=== PATIENT | male | born 2000 | race African-American/Black ===

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

== ENCOUNTER 2019-02-18 07:16 | Emergency (ER) | payer MEDICAID ==
[~2019-02-18] VITALS: Ht 177.8 cm; Wt 80.0 kg
[~2019-02-18 07:16] MED LIST changes: +KEPP500 PO
[2019-02-18] MEDS ORDERED: SODIUM CHLORIDE 0.9% 1,000 ML IV ONE ×2 (07:31→11:15)
[2019-02-18] MEDS ORDERED: LEVETIRACETAM 500MG PREMIX 100 ML IV ONE (07:45)
[2019-02-18 07:52] LABS: BASOPHILS % 0.7 % (0.0-2.0); EOSINOPHILS % 0.9 % (0.0-5.0); HEMATOCRIT. 41.6 % (42.0-52.0); HEMOGLOBIN. 14.2 g/dL (14.0-18.0); LYMPHOCYTES % 58.2 % (20.0-50.0); MEAN CORPUSCULAR HEMOGLOBIN 27.1 pg (28.0-32.0); MEAN CORPUSCULAR VOLUME 79.3 fL (80.0-94.0); MONOCYTES % 7.9 % (2.0-8.0); NEUTROPHILS % 32.3 % (40.0-76.0); PLATELET 199 x1000/uL (130-400); RED BLOOD CELL COUNT 5.25 mill/uL (4.7-6.1); RED CELL DISTRIBUTION WIDTH 14.3 % (11.6-14.6)
[2019-02-18 07:55] LABS: CHLORIDE 106 mEq/L (98-107)
[2019-02-18 12:45] VITALS: BP 111/68
== END 2019-02-18 12:59 | disposition home or self-care (01) ==
LOC: ER 07:16
DX: G40.909 Epilepsy, unspecified, not intractable, without status epilepticus (principal); I11.9 Hypertensive heart disease without heart failure
CPT/HCPCS: 36415; 80053; 85025; 96365; 96366; 99283; J1953; J7030

== ENCOUNTER 2019-02-22 03:55 | Emergency (ER) | payer MEDICAID ==
[~2019-02-22] VITALS: Ht 175.3 cm; Wt 75.0 kg
[2019-02-22 05:38] VITALS: BP 91/57
== END 2019-02-22 05:39 | disposition home or self-care (01) ==
LOC: ER 03:55
DX: R56.9 Unspecified convulsions (principal); I51.9 Heart disease, unspecified; Z79.899 Other long term (current) drug therapy
CPT/HCPCS: 82962; 99283

== ENCOUNTER 2019-04-12 22:46 | Emergency (ER) | payer MEDICAID ==
[~2019-04-12] VITALS: Ht 175.3 cm; Wt 77.0 kg
[2019-04-12] MEDS ORDERED: LORAZEPAM 2MG/ML CPJ IV ONE (23:30)
[2019-04-12] MEDS ORDERED: LEVETIRACETAM 500MG PREMIX 100 ML IV ONE (23:30)
[2019-04-12 23:55] LABS: CHLORIDE 108 mEq/L (98-107)
[2019-04-12 23:56] LABS: BASOPHILS % 0.3 % (0.0-2.0); EOSINOPHILS % 0.4 % (0.0-5.0); HEMATOCRIT. 36.3 % (42.0-52.0); HEMOGLOBIN. 12.8 g/dL (14.0-18.0); LYMPHOCYTES % 36.8 % (20.0-50.0); MEAN CORPUSCULAR HEMOGLOBIN 27.1 pg (28.0-32.0); MEAN CORPUSCULAR VOLUME 76.6 fL (80.0-94.0); MEAN PLATELET VOLUME 8.1 fl (7.4-10.4); MONOCYTES % 6.1 % (2.0-8.0); NEUTROPHILS % 56.4 % (40.0-76.0); PLATELET 178 x1000/uL (130-400); RED BLOOD CELL COUNT 4.74 mill/uL (4.7-6.1); RED CELL DISTRIBUTION WIDTH 14.5 % (11.6-14.6)
[2019-04-13 03:55] VITALS: BP 121/72
== END 2019-04-13 03:56 | disposition home or self-care (01) ==
LOC: ER 22:46
DX: G40.909 Epilepsy, unspecified, not intractable, without status epilepticus (principal); Z91.14 Patient's other noncompliance with medication regimen; R73.9 Hyperglycemia, unspecified
CPT/HCPCS: 36415; 80053; 85025; 96365; 96375; 99283; J1953; J2060; Z7610

== ENCOUNTER 2022-07-27 23:21 | Emergency (ER) | payer MEDICAID ==
[~2022-07-27] VITALS: Ht 182.9 cm; Wt 77.0 kg
[~2022-07-27 23:21] MED LIST changes: +ASPIRIN; +LASIX; +VASOTEC
[2022-07-28] MEDS ORDERED: LEVETIRACETAM 500MG PREMIX 100 ML IV ONE (00:15)
[2022-07-28 02:00] VITALS: BP 115/69
== END 2022-07-28 02:32 | disposition home or self-care (01) ==
LOC: ER 23:21
DX: S01.512A Laceration without foreign body of oral cavity, initial encounter (principal); R56.9 Unspecified convulsions; X58.XXXA Exposure to other specified factors, initial encounter; Y93.89 Activity, other specified; Y92.89 Other specified places as the place of occurrence of the external cause; Y99.8 Other external cause status
CPT/HCPCS: 82962; 93005; 96365; 99284; J1953

== ENCOUNTER 2024-10-06 12:22 | Emergency (ER) | payer MEDICAID ==
[~2024-10-06] VITALS: Ht 182.9 cm; Wt 85.0 kg
[2024-10-06 12:28] VITALS: BP 141/88; PULSE 86; RESP 18; TEMP 98.6; O2SAT 98
[2024-10-06] MEDS: SODIUM CHLORIDE 0.9% 1,000 ML IV ONE (12:45)
[2024-10-06] MEDS ORDERED: TETANUS, DIPHTHERIA, PERTUSSIS VAC/PF 0.5ML (>10YR OLD) IM ONE (13:00)
[2024-10-06 14:25] LABS: BASOPHILS % 0.5 % (0.0-2.0); EOSINOPHILS % 0.7 % (0.0-5.0); HEMOGLOBIN. 14.8 g/dL (14.0-18.0); LYMPHOCYTES % 30.9 % (20.0-50.0); MEAN CORPUSCULAR HEMOGLOBIN 28.5 pg (28.0-32.0); MEAN CORPUSCULAR HGB CONC 34.3 g/dL (31.0-37.0); MEAN CORPUSCULAR VOLUME 83.1 fL (80.0-94.0); MEAN PLATELET VOLUME 7.7 fl (7.4-10.4); MONOCYTES % 5.7 % (2.0-8.0); NEUTROPHILS % 62.2 % (40.0-76.0); PLATELET 235 x1000/uL (130-400); RED BLOOD CELL COUNT 5.18 mill/uL (4.7-6.1); RED CELL DISTRIBUTION WIDTH 14.1 % (11.6-14.6); WHITE BLOOD COUNT 6.2 x1000/uL (4.5-11.0)
[2024-10-06 14:40] LABS: CARBON DIOXIDE 22 mEq/L (21-32); CHLORIDE 111 mEq/L (98-107); POTASSIUM 3.7 mEq/L (3.5-5.1); SODIUM 144 mEq/L (136-145)
[2024-10-06 14:45] LABS: CREATININE 0.9 mg/dL (0.6-1.3)
[2024-10-06 14:46] LABS: GLUCOSE 89 mg/dL (70-105); UREA NITROGEN BLOOD 10 mg/dL (9-23)
[2024-10-06 14:55] LABS: ETHANOL BLOOD 352 mg/dL (<10)
[2024-10-07 13:54] LABS: *AMPHETAMINES SCREEN URINE NEGATIVE (NEGATIVE); *BARBITURATES SCREEN URINE NEGATIVE (NEGATIVE); *BENZODIAZEPINES SCREEN URINE NEGATIVE (NEGATIVE)
[2024-10-07 13:55] LABS: *COCAINE SCREEN URINE NEGATIVE (NEGATIVE); CANNABINOID URINE SCREEN NEGATIVE (NEGATIVE); ECSTASY MDMA SCREEN URINE NEGATIVE (NEGATIVE); METHADONE URINE SCREEN NEGATIVE (NEGATIVE); OPIATES URINE SCREEN NEGATIVE (NEGATIVE); PHENCYCLIDINE URINE SCREEN NEGATIVE (NEGATIVE)
== END 2024-10-06 19:03 | disposition left against medical advice (07) ==
LOC: ER 12:29
DX: F10.129 Alcohol abuse with intoxication, unspecified (principal); S01.511A Laceration without foreign body of lip, initial encounter; S09.90XA Unspecified injury of head, initial encounter; Z79.899 Other long term (current) drug therapy; Y90.8 Blood alcohol level of 240 mg/100 ml or more; W18.30XA Fall on same level, unspecified, initial encounter; Y93.89 Activity, other specified; Y92.89 Other specified places as the place of occurrence of the external cause; Y99.8 Other external cause status
CPT/HCPCS: 80048; 80320; 85025; 36415; 96360; 99283; J7030; G0480

== ENCOUNTER 2024-10-06 19:01 | Emergency (ER) | payer MEDICAID ==
[~2024-10-06] VITALS: Ht 175.3 cm; Wt 73.0 kg
[2024-10-06 19:04] VITALS: BP 152/99; PULSE 90; RESP 18; O2SAT 100
== END 2024-10-06 20:40 | disposition left against medical advice (07) ==
LOC: ER 19:01
DX: S00.511A Abrasion of lip, initial encounter (principal); F10.129 Alcohol abuse with intoxication, unspecified; W18.30XA Fall on same level, unspecified, initial encounter; Y93.89 Activity, other specified; Y92.89 Other specified places as the place of occurrence of the external cause; Y99.8 Other external cause status; Y90.9 Presence of alcohol in blood, level not specified
CPT/HCPCS: 70450; 70486; 99284; Z7610

== ENCOUNTER 2024-10-07 12:57 | Emergency (ER) | payer MEDICAID ==
[~2024-10-07] VITALS: Ht 170.2 cm; Wt 63.0 kg
[2024-10-07 12:59] VITALS: BP 138/74; PULSE 93; RESP 16; TEMP 98.5; O2SAT 97
== END 2024-10-07 15:19 | disposition home or self-care (01) ==
LOC: ER 12:57
DX: F10.129 Alcohol abuse with intoxication, unspecified (principal); Z79.899 Other long term (current) drug therapy; Z79.82 Long term (current) use of aspirin; Z86.59 Personal history of other mental and behavioral disorders; Y90.9 Presence of alcohol in blood, level not specified
CPT/HCPCS: 99283